=== PATIENT | male | born 1995 | race Caucasian/White ===

== ENCOUNTER 2019-07-20 08:54 | Day surgery (SDC) | payer OTHER ==
[2019-07-17 10:19] VITALS: BMI 19.5
[2019-07-20] MEDS ORDERED: Dexamethasone 20 MG/5 ML VIAL ONE (09:46)
[2019-07-20] MEDS ORDERED: Ropivacaine 0.5% HCl/PF (150 MG/30 ML VIAL) ONE (09:46)
[2019-07-20] MEDS ORDERED: Ondansetron PF 4 MG/2 ML Vial ONE ×2 (09:46→10:41)
[2019-07-20] MEDS ORDERED: PROPOFOL 200 MG/20 ML VIAL ONE (09:46)
[2019-07-20] MEDS ORDERED: Ketorolac Tromethamine 30 MG/ML VIAL ONE (09:46)
[2019-07-20] MEDS ORDERED: Bupivacaine HCl 0.5%/Epinephrine 1:200,000/PF 30 ml Vial ONE (09:46)
[2019-07-20] MEDS ORDERED: ePHEDrine/0.9% NaCl/PF SYRINGE 50 mg/10 ml ONE (09:46)
[2019-07-20] MEDS ORDERED: Ropivacaine 0.2% HCl/PF 0 ML ONE (10:18)
[2019-07-20] MEDS ORDERED: Midazolam HCl 2 mg/2 ml Vial ONE (10:18)
[2019-07-20] MEDS ORDERED: Fentanyl 100 MCG/2 ML VIAL ONE (10:18)
[2019-07-20] MEDS ORDERED: Dexamethasone 4 mg/ml Vial ONE (10:28)
[2019-07-20] MEDS ORDERED: Famotidine/PF 20 mg/2ml Vial ONE (10:40)
[2019-07-20] MEDS ORDERED: Scopolamine 1.5 mg/72 hour Patch ONE (10:41)
[2019-07-20] MEDS ORDERED: Bupivacaine/Epinephrine 0.5% 10 ML VIAL ONE ×2 (11:43→11:44)
[2019-07-20] MEDS ORDERED: HYDROcodone/Acetaminophen 5/325 mg Tablet ONE (14:26)
--- NOTE | 2019-07-20 16:39 | OP ---
DATE OF PROCEDURE: 07/20/2019 PREOPERATIVE DIAGNOSIS: Left knee anterior cruciate ligament tear. POSTOPERATIVE DIAGNOSES: 1. Left knee anterior cruciate ligament tear. 2. Stable undersurface tear of posterior horn of lateral meniscus. PROCEDURE: 1. Left knee exam under anesthesia 2. Left knee arthroscopy with arthroscopically assisted ACL reconstruction using autologous patellar tendon graft [employer]PERATIONS: Miles Sabillon PA-C. BLOOD LOSS: Minimal. COMPLICATIONS: None. IMPLANTS: 7 x 25 metal interference screw on the femur and bicortical screw with a smooth washer on the tibia as a post. ANESTHESIA: He had a general anesthetic. He also had a preoperative block. DISPOSITION: He went to recovery room in stable condition. INDICATIONS: This is a 23-year-old male, who injured his knee a couple of months ago. The patient was found to have an ACL tear and at this time is presenting for reconstruction. DESCRIPTION OF PROCEDURE: After all appropriate consent forms were explained and signed, he was taken back to the operating room and at this time was given general anesthetic. Once the level of anesthesia was appropriate, an exam under anesthesia commenced. Positive Alfredito's was noted. Full range of motion was noted. The patient with stable varus and valgus stress. Tourniquet was placed in the left thigh. Leg was placed in an arthroscopic leg vargas. The limb was then exsanguinated and tourniquet was taken up to 250 mmHg. A 10 blade was used to make an anterior incision down through skin. Bovie was used to coagulate any brisk venous bleeding. New blade was used to take paratenon off the underlying patellar tendon. Central third patellar tendon graft was harvested using a double 10 blade saw and osteotome. This was taken to back table and made, so the femoral side was a size 9, tibial side was size 10. Graft site was loosely closed with multiple Vicryl. Inferolateral portal was established. Scope was placed into the knee joint. Needle localization technique was then used for a medial working portal. Diagnostic arthroscopy commenced in the notch. ACL was found to be torn. PCL was intact. Remnant of the ACL was removed. Medial compartment was evaluated. Femur, tibia, and medial meniscus were intact. The lateral compartment showed the femur and tibia to be in good condition. The posterior horn of the lateral meniscus had an undersurface tear, it was stable to probing, and we just tucked the shaver in there to debride things a little bit to promote healing and some scar formation. We then looked through both gutters. No loose bodies were noted. The patellofemoral joint was also found to be in good condition. At this time, notchplasty was performed. We then flexed the knee up, and through the medial portal, an [id number]-[id number] guide was used to place a pin up and out the anterolateral thigh. A 9-mm reamer was used to ream to a depth of nearly 30. All loose bony debris was removed from the knee joint. Tibial guide was then set at nearly [address] a pin up into the knee joint. A 10-mm reamer was used to ream our tibial tunnel. All edges were smoothed off with a rasp and hamilton. Again, all loose bony cartilaginous debris was removed from the knee joint. At this time, we went dry. We then flexed the knee up and then placed a pin up and out the anterolateral thigh using this to pull a passing suture into the knee joint. This was pulled down the tibial tunnel. This was then used to pull the graft up into the knee. A 7 x 25 metal interference screw was then used to fix our femoral side. We then drilled , tapped, and placed our bicortical screw with a smooth washer and tied our tibial strings around this in full extension and a posterior drawer being applied. At this time, the knee was taken through full range of motion under direct observation and was found to have no impingement on the graft through full flexion and extension. The scope was removed. Knee was drained. We bone grafted our tibial and patellar defects. We then ran a Vicryl to close our paratenon, 2-0 Vicryl and surgical jethro on skin. A bulky sterile dressing was applied. Tourniquet was let down. Toes pinked up nicely. The patient was awakened and he was taken to recovery room in stable condition. All counts were correct at the end of the case and he did receive preoperative IV antibiotics. Of note, throughout the procedure, it was noted that the patient's bone quality was worse than normal for a 23-year-old. Job ID: [id number] [facility]
== END 2019-07-20 15:35 | disposition home or self-care (01) ==
LOC: SDC 08:54
PROVIDERS: ATTEND Orthopaedic Surgery
PROC: 0MSP4ZZ Reposition Left Knee Bursa and Ligament, Percutaneous Endoscopic Approach (ICD-10-PCS; principal; 2019-07-20)
DX: S83.512A Sprain of anterior cruciate ligament of left knee, initial encounter (principal); S83.282A Other tear of lateral meniscus, current injury, left knee, initial encounter; F17.200 Nicotine dependence, unspecified, uncomplicated; W18.30XA Fall on same level, unspecified, initial encounter; Y92.69 Other specified industrial and construction area as the place of occurrence of the external cause; Y99.0 Civilian activity done for income or pay
CPT/HCPCS: C1713; J0670; J0690; J1100; J1885; J2250; J2405; J2704; J2795; J3010; J3490; S0028